=== PATIENT | male | born 1960 | race Caucasian/White ===

== ENCOUNTER 2023-09-30 10:46 | Outpatient (CLI) | payer OTHER, SELFPAY ==
--- NOTE | ~2023-09-30 | MR_ITS ---
MRI of the right shoulder Technique: Axial proton-density fat-sat images, coronal proton density fat-sat and T2 fat-sat images, and sagittal T1-weighted and T2 fat-sat images were acquired. Clinical History: Rotator cuff tear Findings: There is advanced AC joint degenerative change. Coracoclavicular, coracoacromial, and corac ohumeral ligaments are probably intact. There is severe tendinosis of the distal subscapularis tendon, with probable low to moderate grade bu rsal surface partial thickness tearing distally. Infraspinatus tendon demonstrates probable focal int erstitial versus bursal surface partial tear near the myotendinous junction region. No full-thickness tear evident. Subscapularis tendon is intact with moderate tendinosis. Tendon of the long head of th e biceps is intact. No definite labral tear identified. Inferior glenohumeral ligament is intact. There is fluid distention of the subacromial/subdeltoid bur sa. No degenerative change of the glenohumeral joint. No muscle atrophy or edema. Impression: Severe tendinosis of the subscapularis tendon with low to moderate grade bursal surface partial thick ness tearing distally. Focal interstitial versus bursal surface partial tear near the myotendinous junction region of the in fraspinatus tendon. Subacromial/subdeltoid bursitis. Severe AC joint degenerative change. Reviewed, dictated and finalized at [facility]. [employer] Impression: Severe tendinosis of the subscapularis tendon with low to moderate grade bursal surface partial thickness tearing distally. Focal interstitial versus bursal surface partial tear near the myotendinous leonardo ction region of the infraspinatus tendon. Subacromial/subdeltoid bursitis. Severe AC joint degenerative change.
== END 2023-09-30 10:47 | disposition home or self-care (01) ==
PROVIDERS: PCP Internal Medicine; Visit Provider Orthopaedic Surgery
DX: M75.101 Unspecified rotator cuff tear or rupture of right shoulder, not specified as traumatic (principal); M75.51 Bursitis of right shoulder
CPT/HCPCS: 73221